=== PATIENT | male | born 1975 | race Two or more races ===

== ENCOUNTER → 2023-09-30 | Emergency (ER) | payer BC, OTHER ==
[~2023-09-30] VITALS: Ht 180.3 cm; Wt 112.0 kg
[2023-09-30 23:10] VITALS: BP 140/91; TEMP 96.7; O2SAT 99
== END | disposition left against medical advice (07) ==
LOC: ER 22:59
DX: T78.40XA Allergy, unspecified, initial encounter (principal); Z53.21 Procedure and treatment not carried out due to patient leaving prior to being seen by health care provider; X58.XXXA Exposure to other specified factors, initial encounter